=== PATIENT | female | born 1945 | race Caucasian/White ===

== ENCOUNTER 2022-06-08 05:36 | Day surgery (SDC) | payer MEDICARE ==
[2022-06-01 14:22] LABS: BASOPHILS % (AUTO) 0.7 % (0-1); EOSINOPHILS # (AUTO) 0.2 X10'3 (0-0.9); EOSINOPHILS % (AUTO) 2.8 % (0-6); LYMPHOCYTES # (AUTO) 1.1 X10'3 (1.1-4.8); LYMPHOCYTES % (AUTO) 14.8 % (21-51); MEAN CORPUSCULAR HEMOGLOBIN 33.5 PG (27.0-31.0); MEAN CORPUSCULAR HGB CONC 33.9 g/dL (33.0-36.5); MEAN CORPUSCULAR VOLUME 98.7 FL (78-98); MEAN PLATELET VOLUME 8.2 FL (7.4-10.4); MONOCYTES # (AUTO) 0.6 X10'3 (0-0.9); MONOCYTES % (AUTO) 8.7 % (2-12); NEUTROPHILS # (AUTO) 5.3 X10'3 (1.8-7.7); PRE OP HEMOGLOBIN 14.9 g/dL (12.0-16.0); PRE OP PLATELET COUNT 194 X10'3 (140-440); RED BLOOD COUNT 4.46 X10'6 (4.20-5.60); RED CELL DISTRIBUTION WIDTH 13.5 % (11.5-14.5)
[2022-06-01 14:51] LABS: ALBUMIN 3.7 G/DL (3.4-5.0); ALBUMIN/GLOBULIN RATIO 1.1 (1.1-1.5); ALKALINE PHOSPHATASE 108 IU/L (46-116); BLOOD UREA NITROGEN 24 MG/DL (7-18); BUN/CREATININE RATIO 28.2 (6.6-38.0); CALCIUM 8.9 MG/DL (8.5-10.1); CHLORIDE 106 MMOL/L (99-107); CREATININE 0.85 MG/DL (0.40-0.90); PRE OP ALT 30 U/L (30-65); PRE OP ANION GAP 9 (8-16); PRE OP AST 16 U/L (10-37); PRE OP GLUCOSE 108 MG/DL (70-104); PRE OP POTASSIUM 4.2 MMOL/L (3.4-5.1); PRE OP SODIUM 141 MMOL/L (135-145); TOTAL CARBON DIOXIDE 26.2 MMOL/L (24-32); eGFR 65 ML/MIN
[2022-06-01 15:05] LABS: PRE OP BILIRUB, TOTAL 0.5 MG/DL (0.0-1.0)
[2022-06-06 07:44] VITALS: BP 113/68
[~2022-06-08] VITALS: Ht 159.3 cm; Wt 60.9 kg
[2022-06-08] VITALS (10 sets, daily range): BP systolic 105–135; BP diastolic 60–79
[~2022-06-08 05:36] MED LIST: DILT240C47 PO; DULO30CA52 PO; EMPA1TAB19 PO; GLIM4TAB7 PO; LEVO100T9 PO; METF-900 PO; ROSU10TA28 PO; ceFAZolin inj. 2,000 MG in dextrose 5%-water 100 ML IV ONE; famotidine 20mg tablet PO ONE; ringers solution, lacted 1,000 ML IV SCH
[2022-06-08] MEDS ORDERED: LIDOcaine 1% (10mg/ml) 2ml vial ONE (05:55)
[2022-06-08] MEDS ORDERED: labetalol 20mg/4ml (5mg/ml) syringe IV PRN (07:10)
[2022-06-08] MEDS ORDERED: ringers solution, lacted 1,000 ML IV SCH (07:10)
[2022-06-08] MEDS ORDERED: hydrALAZINE 20mg/ml inj. IV PRN (07:10)
[2022-06-08] MEDS ORDERED: ondansetron/PF 4mg/2ml inj IV PRN (07:10)
[2022-06-08] MEDS ORDERED: fentaNYL/PF 50MCG/1 ML 2ML syringe IV PRN ×2 (07:10)
[2022-06-08] MEDS ORDERED: morphine 4 MG/ML inj SYRINge IV PRN (07:10)
[2022-06-08] MEDS ORDERED: morphine 2 MG/ML inj. syringe IV PRN (07:10)
[2022-06-08] MEDS ORDERED: fentaNYL/PF 50MCG/1 ML 2ML syringe ONE (07:17)
[2022-06-08] MEDS ORDERED: MIDAZolam 1 MG/ML 5ML VIAL ONE (07:17)
[2022-06-08] MEDS ORDERED: BUPIVAcaine/PF 2.5 mg/ml (0.25%) 30ml vial IJ ONE (07:29)
--- NOTE | 2022-06-08 08:01 | NUR ---
5Received from OR via , accompanied by Anesthesiologist DR ESPITIA and report given by Anesthesiolgist. VVS ON ROOM AIR. BANDAGE ON RIGHT HAND. IV IN LEFT HAND. PATIENT RESTING WITH NO COMPALINTS OF PAIN Addendum: 06/08/22 at 0803 by Jaqui Flores RN Amended: Links added.
--- NOTE | 2022-06-08 09:14 | NUR ---
ALL DC CRITERIA HAS BEEN MET. IV DC'D WITH CANNULA INTACT. DC INSTRUCTIONS REVIEWD WITH PT, PT HAS NO FURTHER QUESTIONS AT THIS TIME. PT WHEELED OUT IN WHEELCHAIR TO DAUGHTER'S PRIVATE VEHICLE. Addendum: 06/08/22 at 0919 by So Serrato RN, RN Amended: Links added.
== END 2022-06-08 09:14 | disposition home or self-care (01) ==
LOC: PAS 05:36
PROVIDERS: ATTEND Orthopaedic Surgery Hand Surgery
DX: G56.01 Carpal tunnel syndrome, right upper limb (principal); M67.431 Ganglion, right wrist; I10 Essential (primary) hypertension; Z79.899 Other long term (current) drug therapy; Z98.890 Other specified postprocedural states; Z88.6 Allergy status to analgesic agent; Z88.8 Allergy status to other drugs, medicaments and biological substances; E11.9 Type 2 diabetes mellitus without complications
CPT/HCPCS: 25111; 36415; 64721; 80053; 82948; 85025; 87811; 93005; J0690; J2250; J3010; J3490; J7030; J7060; J7120; Z7506; Z7512; A4215